=== PATIENT | female | born 1955 | race Caucasian/White ===

== ENCOUNTER 2017-01-30 22:57 | Emergency (ER) | payer OTHER ==
[~2017-01-30] VITALS: Ht 167.6 cm; Wt 88.5 kg
[~2017-01-30 22:57] MED LIST: LEVAQUIN500 MG PO; MEDROL DOSEPAK1 PAC PO
[2017-01-30 23:44] LABS: ABSOLUTE BASOPHIL COUNT 0 /CUMM (0.0-0.2); ABSOLUTE EOSINOPHIL COUNT 0.1 /CUMM (0.0-0.7); ABSOLUTE GRANULOCYTE CT 10.9 /CUMM (1.4-6.5); ABSOLUTE MONOCYTE COUNT 0.1 /CUMM (0.10-0.60); BASOPHIL % 0.4 % (0.0-2.0); EOSINOPHIL % 0.6 % (0-5); GRANULOCYTE % 89.9 % (42.2-75.2); HEMATOCRIT 41.1 % (37-47); MEAN CORPUSCULAR HGB 30.8 PG (27.0-31.0); MEAN CORPUSCULAR HGB CONC 33.7 G/DL (33.0-37.0); MEAN CORPUSCULAR VOLUME 91.3 FL (81.0-99.0); MEAN PLATELET VOLUME 13.4 FL (7.4-10.4); PLATELET COUNT 124 /CUMM (130-400); RBC DISTRIBUTION WIDTH 14.1 % (11.5-14.5); RED BLOOD CELL CT 4.51 /CUMM (4.20-5.40); WHITE BLOOD CELL COUNT 12.1 /CUMM (4.8-10.8)
--- NOTE | 2017-01-30 23:51 | ED CARDIAC/CP/PALPITATIONS ---
History of Present Illness General Chief Complaint: General Adult Stated Complaint: "HEAVINESS IN MY CHEST, DIZZY" PER PT Source: patient, family Exam Limitations: no limitations Vital Signs & Intake/Output Vital Signs & Intake/Output Vital Signs Date Time Temp Pulse Resp B/P Pulse O2 O2 Flow FiO2 Ox Delivery Rate 01/31 0039 100 Room Air 01/30 2304 98.0 82 18 121/75 95 Room Air ED Intake and Output 01/31 0000 01/30 1200 Intake Total Output Total Balance Patient 195 lb Weight Allergies Coded Allergies: Penicillins (HIVES 12/12/15) Triage Note: PT TO ED C/O CHEST HEAVINESS THAT GOES FROM BETWEEN BREASTS TO RT SHOLDER BLADE FOR A HOUR. "WORSE WHEN I BREATHE DEEP" MULTIPLE COMPLAINTS: -COUGH FOR "A WEEK OR SO" -STUFFY NOSE -RT EAR PRESSURE -VERTIGO FOR 5 WEEKS -NECK STIFFNESS FOR 1 1/2 WEEKS -UTI JUST STARTED ABX Triage Nurses Notes Reviewed? yes Onset: Abrupt Duration: constant Timing: recent history Location: substernal Radiation: no radiation HPI: Patient is a 61-year-old female with a past medical history of GERD, hypertension peripheral neuropathy and chronic low back pain who presents to emergency room with multiple complaints. Patient states that 5 weeks ago she had acute onset of room spinning sensation that was made worse with head movements in body positioning. She states that she followed up with primary care Dr. Spear who prescribed meclizine which patient had adverse reactions to this medication were made patient only tired patient discontinued that patient then used [employer] for techniques to improve room spinning sensation which improved those symptoms however patient states that for the past 4 weeks she's been now complaining of dizziness symptoms. Patient does state for the past few days she's been complaining of worsening cough in which patient is an EVERYDAY smoker. Positive chills last night Patient also complains that she woke up this morning with urgency frequency of urination where her primary care doctor prescribed patient NITROFURANTAIN. Patient states that approximately one HOUR after taking her first dose she had acute onset of substernal chest pressure and shortness of breath. Patient also complains of a 4-5 day history of worsening neck pain and neck stiffness. Patient denies any mechanism for injury. Patient has been taking ibuprofen with no relief of symptoms. Currently she denies any fevers year pain headache extremity paresthesia weakness or pain, arm pain jaw pain nausea vomiting, the cyst leg swelling. Denies any abdominal pain vaginal bleeding discharge (MARY CRISOSTOMO) Reconcile Medications Azithromycin (Zithromax) 250 MG TABLET 1 DP PO AD BRONCHITIS 2 the first day followed by 1 for days 2-5 Levofloxacin (Levaquin) 500 MG TAB 1 TAB PO DAILY PNEUMONIA Methylprednisolone. (Medrol) 1 PAC PAC 1 PAC PO DAILY INFLAMMATION USE DIRECTED (TERE EDMONDS,MICHELLE Osorio) Past History Travel History Traveled to [place] past 21 day No Medical History Any Pertinent Medical History? see below for history Neurological: peripheral neuropathy EENT: NONE Cardiovascular: hypertension Respiratory: NONE Gastrointestinal: GERD Renal: NONE Musculoskeletal: chronic back pain Psychiatric: NONE Endocrine: NONE Blood Disorders: NONE Cancer(s): NONE Surgical History Surgical History: LUMBAR BACK SURGERIES Psychosocial History Who do you live with Spouse What is your primary language Portuguese Tobacco Use: Current Daily Use Daily Tobacco Use Amount/Type: => 5 Cigarettes daily ETOH Use: occasional use Illicit Drug Use: denies illicit drug use Family History Hx Contributory? No (MARY CRISOSTOMO) Review of Systems Review of Systems Constitutional: Reports: see HPI, chills. EENTM: Reports: no symptoms. Respiratory: Reports: see HPI, cough. Cardiovascular: Reports: see HPI, chest pain. GI: Reports: no symptoms. Genitourinary: Reports: see HPI, urgency. Musculoskeletal: Reports: muscle stiffness, neck pain. Skin: Reports: no symptoms. Neurological/Psychological: Reports: no symptoms. Hematologic/Endocrine: Reports: no symptoms. Immunologic/Allergic: Reports: no symptoms. All Other Systems: Reviewed and Negative (MARY CRISOSTOMO) Physical Exam Physical Exam General Appearance: no apparent distress, alert, comfortable Cardiovascular: regular rate/rhythm Comments: Well-developed well-nourished person in no acute distress HEENT: Normal EENT exam, extraocular motion intact, no nystagmus. Pupils equally round and reactive to light and accommodation. Nose is atraumatic. External auditory canal and Tympanic membranes clear. Pharynx normal. No swelling or edema. Neck: Supple, no lymphadenopathy, normal range of motion Mild bilateral paracervical muscular pain, no central spinous pain Back: Nontender, no CVA tenderness. Cardiovascular: Regular rate and rhythms no murmurs rubs or gallops, normal JVP Respiratory: Chest nontender. No respiratory distress. Right posterior crackles noted Abdomen: Soft, nontender nondistended, no appreciable organomegaly. Normal bowel sounds. No ascites Extremity: No edema, no calf tenderness to palpation, normal and equal pulses. Upper extremity bilateral myotomes dermatomes DTRs intact Neuro: Alert oriented x3, motor sensory normal, cranial nerves II through XII grossly intact. Skin: No appreciable rash on exposed skin, skin is warm and dry. Psych: Mood and affect is normal, memory and judgment is normal. Core Measures ACS in differential dx? Yes Severe Sepsis Present: No Septic Shock Present: No (HARSHA WHITLOCK,MARY) Progress Differential Diagnosis: AMI, aortic dissection, atrial fibrillation, cholecystitis, CHF/pulm edema, costochondritis, hyperkalemia, hypovolemia, hyperthyroid, hyperventilation, intracranial hemorrhage, musculoskeletal pain, myocarditis, pancreatitis, pericarditis, pneumonia, pneumothorax, PSVT, pulmonary embolism, PUD/GERD, PVCs/PACs, respiratory failure, rib fracture, sepsis, unstable angina, V-fib/V-Tach, WPW syndrome, VERTIGO, PERIPHERAL VERTIGO uti, SEPSIS Plan of Care: Orders Procedure Date/time Status TROPONIN LEVEL 01/31 0311 Complete RAPID VIRAL INFLUENZA A 01/31 0001 Complete LOWER RESPIRATORY CULTURE 01/31 0001 Active Add-on Test (ER Only) 01/30 2353 Active URINALYSIS 01/30 2353 Complete TROPONIN LEVEL 01/31 2332 Complete COMPREHENSIVE METABOLIC PANEL 01/30 2313 Complete CBC WITHOUT DIFFERENTIAL 01/30 2313 Complete EKG 01/30 2313 Active Laboratory Tests 01/31/17 0333: Troponin I < 0.01 01/31/17 0012: Urinalysis LIGHT H, Urine Color STRAW, Urine Clarity CLEAR, Urine pH 6.0, Ur Specific [place] 1.020, Urine Protein NEG, Urine Ketones NEG, Urine Nitrite NEG, Urine Bilirubin NEG, Urine Urobilinogen 0.2, Ur Leukocyte Esterase SMALL H, Ur Microscopic SEDIMENT EXAMINED, Urine RBC 5-10 H, Urine WBC 5-10 H, Ur Epithelial Cells MOD H, Urine Bacteria MOD H, Urine Mucus FEW, Urine Hemoglobin SMALL H, Urine Glucose NEG 01/30/17 2332: Anion Gap 11, Estimated GFR 56 L, BUN/Creatinine Ratio 23.0, Glucose 111 H, Calcium 9.3, Total Bilirubin 0.5, AST 37 H, ALT 92 H, Alkaline Phosphatase 90, Troponin I < 0.01, Total Protein 7.1, Albumin 4.4, Globulin 2.7, Albumin/ Globulin Ratio 1.6, CBC w Diff MAN DIFF ORDERED, RBC 4.51, MCV 91.3, MCH 30.8, RDW 14.1, MPV 13.4 H, Gran % 89.9 H, Lymphocytes % 8.3 L, Monocytes % 0.8 L, Eosinophils % 0.6, Basophils % 0.4, Absolute Granulocytes 10.9 H, Segmented Neutrophils 83 H, Band Neutrophils 9 H, Absolute Lymphocytes 1.0 L, Lymphocytes 6 L, Monocytes 2, Absolute Monocytes 0.1 L, Absolute Eosinophils 0.1, Absolute Basophils 0, Platelet Estimate DECREASED, Normochromic RBCs VERIFIED, Anisocytosis 1+, PUBS MCHC 33.7 Microbiology 01/31 0015 NASOPHARYN: Influenza Virus A & B Rapid Smear - COMP 01/31 0001 LOWER RESP: Respiratory Culture - ORD 01/31 0001 LOWER RESP: Gram Stain - ORD Patient currently is resting comfortably Blood work and chest x-ray are pending. Discussed hand off with Dr. Faith (HARSHA WHITLOCK,MARY) Initial ED EKG: SINUS RHYTHM 77 BPM Hand-Off Endorsed To: MICHELLE FAITH MD Endorsed Time: 44 Pending: labs (HARSHA WHITLOCK,MARY) Diagnostic Imaging: Viewed by Me: Radiology Read. Discussed w/RAD: Radiology Read. CXR Impression: PATIENT: LISA DURAN PRESENT AGE: 61 PATIENT ACCOUNT NO: [id number] : 53 LOCATION: [facility] ORDERING PHYSICIAN: MARY WHITLOCK SERVICE DATE: 01/31/17 EXAM TYPE: RAD - XRY -CHEST XRAY, PA AND LATERAL EXAMINATION: XR CHEST CLINICAL INFORMATION: Chest pressure. COMPARISON: Chest radiograph 12/12/2015 and 02/10/2014. TECHNIQUE: 2 views of the chest were obtained. FINDINGS: Lungs are well-expanded. There is no focal consolidative disease, pleural effusion, or pneumothorax. The cardiac silhouette and upper mediastinal contours are normal. No acute osseous finding. IMPRESSION: Unremarkable chest radiograph. No consolidative disease or effusion. DICTATED BY: KARISHMA EDMONDS,DORON Yadav DATE/TIME DICTATED:01/31/1742 ESTHETICIAN MAKEUP ARTIST:RAD.PALACIOS DATE/TIME TRANSCRIBED:01/31/1742 CONFIDENTIAL, DO NOT COPY WITHOUT APPROPRIATE AUTHORIZATION. <Electronically signed in Other Vendor System> SIGNED BY: DORON SCHWARZ MD 01/31/1747 (TERE EDMONDS,MICHELLE Osorio) Departure Departure Condition: Stable Clinical Impression Primary Impression: Chest heaviness Secondary Impressions: Dizziness, Neck pain, Upper respiratory infection Referrals: ROBBIE EDMONDS,ASCENCION Hines (PCP/Family) Departure Forms: Customer Survey General Discharge Information (MARY CRISOSTOMO) Departure Disposition: HOME OR SELF CARE Additional Instructions: RETURN IF SYMPTOMS WORSEN OR FOR ANY CONCERNS Prescriptions: Current Visit Scripts Azithromycin (Zithromax) 1 DP PO AD #6 TAB 2 the first day followed by 1 for days 2-5 PA/CAREER SERVICES COORDINATOR Co-Sign Statement Statement: ED Attending supervision documentation- [X] I saw and evaluated the patient. I have also reviewed all the pertinent lab results and diagnostic results. I agree with the findings and the plan of care as documented in the PA's/CAREER SERVICES COORDINATOR's documentation. [X] I have reviewed the ED Record and agree with the PA's/CAREER SERVICES COORDINATOR's documentation. [] Additions or exceptions (if any) to the PAs/CAREER SERVICES COORDINATOR's note and plan are summarized below: [] (TERE EDMONDS,MICHELLE Osorio) Critical Care Note Critical Care Note Critical Care Time: non-applicable (MARY CRISOSTOMO)
--- NOTE | 2017-01-31 00:48 | RADIOLOGY REPORT ---
EXAMINATION: XR CHEST CLINICAL INFORMATION: Chest pressure. COMPARISON: Chest radiograph 12/12/2015 and 02/10/2014. TECHNIQUE: 2 views of the chest were obtained. FINDINGS: Lungs are well-expanded. There is no focal consolidative disease, pleural effusion, or pneumothorax. The cardiac silhouette and upper mediastinal contours are normal. No acute osseous finding. IMPRESSION: Unremarkable chest radiograph. No consolidative disease or effusion.
[2017-01-31] MEDS ORDERED: ZITHROMAX250 M2 PO (04:09)
[2017-01-31 04:17] VITALS: BP 126/72
== END 2017-01-31 04:23 ==
LOC: ERH 22:57
PROVIDERS: Emergency Medicine
DX: R07.9 Chest pain, unspecified (principal); R42 Dizziness and giddiness; M54.2 Cervicalgia; J06.9 Acute upper respiratory infection, unspecified; Z72.0 Tobacco use
CPT/HCPCS: 81001; 87070; 87804; 87804-59; 93005; 93010; 96361; 96374